=== PATIENT | female | born 1990 | race Two or more races ===

== ENCOUNTER 2024-09-18 10:27 | Day surgery (SDC) | payer OTHER ==
[2024-09-13 10:21] LABS: HEMATOCRIT 36.9 % (36.0-45.00); HEMOGLOBIN 12.3 g/dL (12.0-15.00); MEAN CELL VOLUME 78.8 fL (80.00-100.00); MEAN CORPUSCULAR HEMOGLOBIN 26.3 pg (27.00-32.0); MEAN CORPUSCULAR HGB CONC 33.3 g/dl (32.0-36.0); PLATELET COUNT 256 K/uL (150-450); RED BLOOD COUNT 4.68 M/uL (4.00-6.00); RED CELL DISTRIBUTION WIDTH 15.6 % (11.5-14.5)
[2024-09-13 10:34] LABS: PH,URINE 7.5 (5.0-8.0); URINE APPEARANCE Clear; URINE BILIRRUBIN Negative (NEGATIVE); URINE BLOOD Negative; URINE COLOR Yellow; URINE GLUCOSE Negative (NEGATIVE); URINE KETONE Negative (NEGATIVE); URINE LEUKOCYTE Negative; URINE NITRATE Negative; URINE PROTEIN Negative (NEGATIVE)
[2024-09-13 10:39] LABS: URINE BACTERIA 83.2 uL (0.0-1933); URINE EPITHELIAL CELLS 14.8 uL (0.0-38.8); URINE RBC 2.6 uL (0.0-20.8); URINE WBC 2.6 uL (0.0-23.2)
[2024-09-13 10:57] LABS: INR 1.05; PARTIAL THROMBOPLASTIN TIME 26.4 SECONDS (22.0-34.0); PROTHROMBIN TIME 11.4 SECONDS (9.0-11.5)
[2024-09-18] MEDS ORDERED: POVIDONE-IODINE 118 ML BOTT TOP ONE (15:31)
[2024-09-18] MEDS ORDERED: ONDANSETRON HCL 2 MG/ML VIAL ONE (16:50)
[2024-09-18] MEDS ORDERED: ONDANSETRON HCL 2 MG/ML VIAL IV ONE (16:55)
[2024-09-18] MEDS ORDERED: KETOROLAC TROMETHAMINE 60 MG VIAL IM STA (18:30)
[2024-09-18] MEDS ORDERED: RINGERS SOLUTION,LACTATED 1,000 ML IV SCH (18:30)
[2024-09-18] MEDS ORDERED: KETOROLAC TROMETHAMINE 60 MG VIAL IM ONE ×2 (19:47→19:50)
== END 2024-09-18 23:15 | disposition home or self-care (01) ==
LOC: CIR.AMB 10:27
PROVIDERS: ATTEND Obstetrics & Gynecology
DX: N87.1 Moderate cervical dysplasia (principal)

== ENCOUNTER 2025-03-06 13:44 | Emergency (ER) | payer OTHER ==
[~2025-03-06] VITALS: Ht 175.3 cm; Wt 67.6 kg
[2025-03-06] MEDS ORDERED: PROGESTERONE200 MG PO (14:27)
[2025-03-06] MEDS ORDERED: ZATEAN-PN DHA1 EACH PO (14:28)
[2025-03-06 16:30] LABS: EOS # 0.07 (0.04-0.54); EOS % 0.9 % (0.7-7.0); HEMATOCRIT 34.6 % (34.1-44.9); HEMOGLOBIN 11.7 g/dL (11.2-15.7); LYMPH # 2.31 (1.18-3.74); LYMPH % 30.2 % (19.3-53.1); MEAN CORPUSCULAR HEMOGLOBIN 25.3 pg (25.6-32.2); MONO # 0.58 (0.24-0.82); MONO % 7.6 % (4.7-12.5); NEUT # 4.61 (1.56-6.13); NEUT % 60.2 % (34.0-71.1); PLATELET COUNT 304 K/uL (163-369); RED BLOOD COUNT 4.63 M/uL (3.93-5.22); RED CELL DISTRIBUTION WIDTH 16.3 % (11.6-14.4)
[2025-03-06 17:22] LABS: URINE APPEARANCE Clear; URINE BILIRRUBIN Negative (NEGATIVE); URINE BLOOD Negative; URINE COLOR Yellow; URINE GLUCOSE Negative (NEGATIVE); URINE KETONE 15 (NEGATIVE); URINE LEUKOCYTE Small; URINE NITRATE Negative; URINE PROTEIN Negative (NEGATIVE); URINE UROBILINOGEN 0.2 E.U./dl
[2025-03-06 17:27] LABS: URINE BACTERIA 449.1 uL (0.0-1933); URINE EPITHELIAL CELLS 25.7 uL (0.0-38.8); URINE RBC 77.7 uL (0.0-20.8); URINE WBC 43.6 uL (0.0-23.2)
[2025-03-06] MEDS ORDERED: CEPHALEXIN500 MG PO (18:19)
[2025-03-06] MEDS ORDERED: PEPCID AC20 MG PO (18:19)
== END 2025-03-06 18:49 | disposition home or self-care (01) ==
LOC: ER 14:01
PROVIDERS: Emergency Medicine
DX: O26.899 Other specified pregnancy related conditions, unspecified trimester (principal); Z3A.01 Less than 8 weeks gestation of pregnancy; R10.2 Pelvic and perineal pain; N39.0 Urinary tract infection, site not specified; R35.0 Frequency of micturition

== ENCOUNTER 2025-06-24 13:37 | Emergency (ER) | payer OTHER ==
[~2025-06-24] VITALS: Ht 175.3 cm; Wt 74.4 kg
[~2025-06-24 13:37] MED LIST: CEPHALEXIN500 MG PO; PEPCID AC20 MG PO; PROGESTERONE200 MG PO; ZATEAN-PN DHA1 EACH PO
[2025-06-24] MEDS ORDERED: ASA81 MG (15:27)
[2025-06-24 15:29] VITALS: O2SAT 100
[2025-06-24] MEDS ORDERED: ACETAMINOPHEN 500 MG GEL..CAP PO ONE ×2 (16:15→16:41)
[2025-06-24 16:36] LABS: BASO % 0.6 % (0.1-1.2); EOS # 0.08 (0.04-0.54); EOS % 0.9 % (0.7-7.0); LYMPH # 1.68 (1.18-3.74); LYMPH % 19.1 % (19.3-53.1); MEAN PLATELET VOLUME 10.40 fl (9.4-12.4); MONO # 0.63 (0.24-0.82); MONO % 7.2 % (4.7-12.5); NEUT # 6.33 (1.56-6.13); NEUT % 71.7 % (34.0-71.1); RED CELL DISTRIBUTION WIDTH 14.6 % (11.6-14.4)
[2025-06-24 17:04] LABS: ALT/SGPT 20.0 U/L (12-78); AST/SGOT 17.0 U/L (15-37); BILIRUBIN TOTAL 0.21 mg/dL (0.3-1.2); BUN CREA RATIO 18.0 (7.0-25.0); CREATININE SERUM 0.61 mg/dL (0.55-1.02); GFR 110.98; GLOBULINA 3.8 G/DL (2.4-3.5); GLUCOSE FASTING 115.0 mg/dL (65-100); OSMOLALITY SERUM 283.0 MOSM/KG (275-295)
[2025-06-24 17:23] LABS: URINE APPEARANCE Clear; URINE BILIRRUBIN Negative (NEGATIVE); URINE BLOOD Negative; URINE COLOR Yellow; URINE GLUCOSE Negative (NEGATIVE); URINE KETONE Trace (NEGATIVE); URINE LEUKOCYTE Trace; URINE NITRATE Negative; URINE PROTEIN Negative (NEGATIVE); URINE UROBILINOGEN 1.0 E.U./dl
[2025-06-24 17:26] LABS: URINE BACTERIA 316.8 uL (0.0-1933); URINE EPITHELIAL CELLS 11.3 uL (0.0-38.8); URINE WBC 31.6 uL (0.0-23.2)
[2025-06-24 17:32] LABS: URINE CAST 0.00 uL (0.0-1.40); URINE RBC 1.9 uL (0.0-20.8)
[2025-06-24 18:38] VITALS: BP 150/95
[2025-06-24] MEDS ORDERED: CLONIDINE HCL 0.1 MG TABLET PO STA (18:41)
[2025-06-24] MEDS ORDERED: CEFTRIAXONE SODIUM 1,000 MG VIAL ONE (22:27)
[2025-06-24] MEDS ORDERED: CEFTRIAXONE SODIUM 1,000 MG VIAL IM ONE (22:30)
[2025-06-24] MEDS ORDERED: MACROBID 100 M100 MG PO (22:47)
[2025-06-24] MEDS ORDERED: ACETAMINOPHEN500 M1 PO (22:47)
== END 2025-06-24 22:56 | disposition home or self-care (01) ==
LOC: ER 13:37
PROVIDERS: Preventive Medicine Public Health & General Preventive Medicine
DX: O23.42 Unspecified infection of urinary tract in pregnancy, second trimester (principal); N39.0 Urinary tract infection, site not specified; R30.0 Dysuria; Z3A.24 24 weeks gestation of pregnancy; J45.909 Unspecified asthma, uncomplicated